=== PATIENT | female | born 2000 | race Hispanic/Latino ===

== ENCOUNTER 2025-05-19 15:31 | Emergency (ER) | payer SELFPAY ==
[2025-05-19 15:34] VITALS: BP 117/73
[2025-05-19 16:11] LABS: Urine Character Clear (Clear)
[2025-05-19 16:32] LABS: Urine Squamous Cell >30 /LPF (Few)
[2025-05-19 16:33] LABS: Urine White Cell 16-20 /HPF (0-5)
[2025-05-19 18:12] VITALS: BP 111/68; BMI 21.8
[2025-05-19] MEDS: MOTRIN 600 MG PO (19:24)
[2025-05-19] MEDS: BACTRIM DS 800 MG/160 MG 1 TABLET PO (19:25)
--- NOTE | 2025-05-19 22:13 | ED.GENMED ---
History of Present Illness
General
Chief Complaint: Urinary Symptoms
Source: patient and conference interpreter (language line)
Exam Limitations: none
Time Seen by Provider: 05/19/25 17:50
Nursing documentation reviewed up to this point in time: agreed with
History of Present Illness
History of Present Illness:
Patient to ED with complaint of vaginal pain and swelling x 2 days. SHe was seen at a few days ago for burning with urination. Placed of antibiotic for suspected UTI. Pain has not improved. To ED accompanied by sister. Denies fever/chills
Past History
Past History
ED Past Medical History: None
Review of Systems
Review of Systems
Allergies reviewed?: Yes
All Other Systems: ROS reviewed and negative except as documented in HPI and ROS
Constitutional: Reports no symptoms
EENT: Reports no symptoms
Respiratory: Reports no symptoms
Cardiac: Reports no symptoms
ABD/GI: Reports no symptoms
: Reports dysuria and other (vaginal alee and swelling)
Musculoskeletal: Reports no symptoms
Skin: Reports no symptoms
Neurological: Reports no symptoms
Psychiatric: Reports no symptoms
Phy Exam
General Physical Exam
General Presentation: well appearing and mild distress
General age: appears stated age
General Skin: warm and dry
General Habitus: normal
General Mental: alert
Gastrointestinal Exam
Gastrointestinal Exam: non tender and soft
Genitourinary Exam Female
Exam Female: no bleeding and other (left bartholens abscess)
Musculoskeletal Exam
Musculoskeletal Exam: full ROM and neuro vasc intact
Skin Exam
Skin Exam: normal color, warm/dry and no rash
Psychiatric Exam
Psychiatric Exam: normal mood/affect
Course
Orders/Labs/Results
Orders:
Orders
05/19/25 15:56
Urinalysis Reflex To Culture Urgent
Date Specimen was Collected: 05/19/25
Time Specimen was Collected: 15:42
Urine Microscopic Reflex Cult Urgent
Urine Culture Urgent
JOHN Source: U
Specimen Description:
Date Specimen was Collected: 05/19/25
Time Specimen was Collected: 15:42
05/19/25 19:02
Ibuprofen [Motrin] 600 mg PO NOW STA
Sulfamethox./Trimethoprim Ds [Bactrim Ds 800 mg/160 mg] 1 tablet PO NOW STA
05/19/25 19:22
Wound Culture [Wound/Abscess/Other Culture] Urgent
JOHN Source: Abscess
Specimen Description:
Date Specimen was Collected: 05/19/25
Time Specimen was Collected: 19:00
Abnormal Lab Results
05/19/25
15:56
Ur Occult Blood Reflex 2+ A
(Negative)
Leukocyte Esterase Rfl 2+ A
(Negative)
Urine RBC 3-6 A /HPF
(0-2)
Urine WBC (Reflex) 16-20 A /HPF
(0-5)
Urine Bacteria (Reflex) Moderate A
(Negative)
Vital Signs
Initial and Last Documented VS:
Initial Vital Signs
Temp Pulse Resp BP Pulse Ox
99.3 F 93 18 117/73 100
05/19/25 15:34 05/19/25 15:34 05/19/25 15:34 05/19/25 15:34 05/19/25 15:34
Last Documented Vital Signs
Temp Pulse Resp BP Pulse Ox
98.5 F 77 20 111/68 100
05/19/25 18:12 05/19/25 18:12 05/19/25 18:12 05/19/25 18:12 05/19/25 18:17
Procedures
Incision/Drainage/Joint Aspiration
Bartholens abscess:
Anethesia: 1% Lidocaine with Epi
Preparation: cleaned with Betadine
Type of procedure: incise and drain
Nature of site: abscess
Description of abscess: less than 3cm
How much fluid was obtained?: large amount
Fluid description: purulent
Treatment: left open for drainage and antibiotics started
*Pulse Oximetry
SaO2: 100
Oxygen Mode of Delivery: Room air
Patient hypoxic: no
*Critical Care Note
Total Time (30-74mins, 75-104mins- exclusive of procedures): Not Applicable
Update Note
Update Note:
Patient to ED with complaint of vagnal pain and swelling, pain with urination. On cephalosporin currently without improvement. Left bartholens abscess noted on exam. Abscess drained bedside. Placed on Bactrim DS. Culture of drainage obtaned and
sent. SHe is discharged home, will follow up with clinic. Given instructions on s/s to return to ED and she is agreeable to plan.
ED Attending Note
-
Portions of this chart may have been created with voice recognition software.� Occasional wrong word or��sound alike� substitutions may have occurred due to the inherent limitations of voice recognition software.
Discharge Plan
Departure
Patient Disposition: Home (Routine Discharge)
Date of Disposition: 05/19/25
Time of Disposition: 19:03
Patient with high blood pressure during this ER visit?: No
Condition: Good
Covid-19: Not Applicable
Discharge Problem:
Abscess of Bartholin gland
Instructions: Bartholin gland cyst
Prescriptions:
New
sulfamethoxazole-trimethoprim [Bactrim DS] 800-160 mg tablet
1 tab PO BID Qty: 20 0RF
hydrocodone-acetaminophen 5-325 mg tablet
1 tab PO Q4H PRN (Reason: Pain) Qty: 12 0RF
Referrals:
[facility] [[facility]] - Call in 1-3 days for appt
Stand Alone Forms: Return to Work
Interventions
Interventions:
*Risk Screen - Suicide Last Done: 05/19/25 15:39
*General Assessment Last Done: 05/19/25 15:39
*Neglect/Abuse Screening Last Done: 05/19/25 15:39
*ED- Fall Risk Assessment Last Done: 05/19/25 18:12
*ED COVID-19 Vaccine History Last Done: 05/19/25 15:39
*ED Influenza Vaccine History Last Done: 05/19/25 15:39
*Nursing Disposition Last Done: 05/19/25 19:30
ED-Female Genitourinary Assessment Last Done: 05/19/25 18:12
Discharge Date and Time
Discharge Date/Time: 05/19/25 19:33
Print Language: ROMANSH
== END 2025-05-19 19:33 | disposition home or self-care (01) ==
LOC: EMR 15:31
PROVIDERS: EMERGENCY PHYSICIAN Emergency Medicine
DX: N75.1 Abscess of Bartholin's gland (principal)
CPT/HCPCS: 99283; 56420; 81003; 81015; 87070; 87086; 87205